=== PATIENT | male | born 1945 ===

== ENCOUNTER 2024-10-14 02:41 | Outpatient (CLI) | payer MEDICAID, SELFPAY ==
[2024-10-14 08:13] LABS: Abs Immature Grans 0.02 10^3/uL (0.0-0.06); Absolute Basophil Count 0.08 10^3/uL (0.0-0.2); Absolute Eosinophil Count 0.18 10^3/uL (0.0-0.7); Absolute Lymphocyte Count 1.93 10^3/uL (1.2-3.4); Absolute Monocyte Count 0.66 10^3/uL (0.1-0.8); Absolute Neutrophil Count 5.68 10^3/uL (1.2-6.7); Basophils % 0.9 %; Eosinophils % 2.1 %; HCT 36.8 % (40.0-50.0); HGB 12.3 g/dL (13.5-17.5); Immature Grans % 0.2 %; Lymphocytes % 22.6 %; MCH 30.4 pg (27.0-33.0); MCHC 33.4 % (32.0-36.0); MCV 91 fL (80-95); MPV 9.8 fL (8.0-11.0); Monocytes % 7.7 %; Neutrophils % 66.5 %; Platelet Count 248 10^3/uL (130-400); RBC 4.05 10^6/uL (4.36-5.78); RDW 12.2 % (11.8-14.1); RDW-SD 40.2 fL; WBC 8.55 10^3/uL (4.4-10.8)
[2024-10-14 08:30] LABS: ALT 13 U/L (16-63); AST 15 U/L (15-37); Alkaline Phosphatase 98 U/L (46-116); Anion Gap 7.1 mmol/L (3-11); BUN 19 mg/dL (7-18); Bilirubin, Total 0.5 mg/dL (0.2-1.0); CO2 29.9 mmol/L (21.0-32.0); CREATININE 1.5 mg/dL (0.70-1.30); Chloride 104 mmol/L (98-107); Estimated GFR 46.77 (mL/min/1.73m2); Glucose 109 mg/dL (74-106); Magnesium 1.9 mg/dL (1.8-2.4); Potassium 3.9 mmol/L (3.5-5.1); Sodium 141 mmol/L (136-145); Total Protein 8.8 g/dL (6.4-8.2)
[2024-10-14 08:37] LABS: Calcium 13.6 mg/dL (8.5-10.1)
== END 2024-10-14 02:42 | disposition home or self-care (01) ==
LOC: LBO 02:42
PROVIDERS: Visit Provider Internal Medicine Medical Oncology
DX: C34.31 Malignant neoplasm of lower lobe, right bronchus or lung (principal)
CPT/HCPCS: 36415; 80053; 80061; 83735; 85025

== ENCOUNTER 2024-10-16 16:39 | Outpatient (CLI) | payer MEDICAID, SELFPAY ==
[2024-10-16 16:47] LABS: ALT 12 U/L (16-63); AST 16 U/L (15-37); Alkaline Phosphatase 94 U/L (46-116); Anion Gap 4.3 mmol/L (3-11); BUN 26 mg/dL (7-18); Bilirubin, Total 0.3 mg/dL (0.2-1.0); CO2 29.7 mmol/L (21.0-32.0); CREATININE 1.2 mg/dL (0.70-1.30); Calcium 10.7 mg/dL (8.5-10.1); Chloride 106 mmol/L (98-107); Estimated GFR 61.13 (mL/min/1.73m2); Glucose 101 mg/dL (74-106); Potassium 4.2 mmol/L (3.5-5.1); Sodium 140 mmol/L (136-145); Total Protein 8.7 g/dL (6.4-8.2)
== END 2024-10-16 16:40 | disposition home or self-care (01) ==
LOC: LBO 16:39
PROVIDERS: Visit Provider Internal Medicine Medical Oncology
DX: C34.31 Malignant neoplasm of lower lobe, right bronchus or lung (principal)
CPT/HCPCS: 36415; 80053

== ENCOUNTER 2024-10-21 02:39 | Outpatient (CLI) | payer MEDICAID, SELFPAY ==
[2024-10-21 08:43] LABS: Abs Immature Grans 0.15 10^3/uL (0.0-0.06); Absolute Basophil Count 0.07 10^3/uL (0.0-0.2); Absolute Eosinophil Count 0.13 10^3/uL (0.0-0.7); Absolute Lymphocyte Count 1.17 10^3/uL (1.2-3.4); Eosinophils % 1.8 %; HGB 11.4 g/dL (13.5-17.5); Immature Grans % 2.1 %; Lymphocytes % 16.4 %; MCHC 33.5 % (32.0-36.0); MCV 92 fL (80-95); MPV 9.6 fL (8.0-11.0); Monocytes % 5.6 %; Neutrophils % 73.1 %; Platelet Count 241 10^3/uL (130-400); RBC 3.68 10^6/uL (4.36-5.78); RDW 11.9 % (11.8-14.1); RDW-SD 39.8 fL; WBC 7.12 10^3/uL (4.4-10.8)
[2024-10-21 09:08] LABS: ALT 12 U/L (16-63); AST 16 U/L (15-37); Alkaline Phosphatase 94 U/L (46-116); Anion Gap 6.2 mmol/L (3-11); BUN 20 mg/dL (7-18); Bilirubin, Total 0.4 mg/dL (0.2-1.0); CO2 26.8 mmol/L (21.0-32.0); CREATININE 1.2 mg/dL (0.70-1.30); Calcium 10.5 mg/dL (8.5-10.1); Chloride 101 mmol/L (98-107); Estimated GFR 61.13 (mL/min/1.73m2); Glucose 107 mg/dL (74-106); Potassium 4.2 mmol/L (3.5-5.1); Sodium 134 mmol/L (136-145); Total Protein 8.8 g/dL (6.4-8.2)
== END 2024-10-21 02:40 | disposition home or self-care (01) ==
LOC: LBO 02:39
PROVIDERS: Visit Provider Internal Medicine Medical Oncology
DX: C34.31 Malignant neoplasm of lower lobe, right bronchus or lung (principal)
CPT/HCPCS: 36415; 80053; 83735; 85025

== ENCOUNTER 2024-10-27 04:14 | Outpatient (CLI) | payer MEDICAID, SELFPAY ==
[2024-10-27 07:30] LABS: Abs Immature Grans 0.04 10^3/uL (0.0-0.06); Absolute Basophil Count 0.04 10^3/uL (0.0-0.2); Absolute Eosinophil Count 0.05 10^3/uL (0.0-0.7); Absolute Lymphocyte Count 0.88 10^3/uL (1.2-3.4); Absolute Monocyte Count 0.25 10^3/uL (0.1-0.8); Absolute Neutrophil Count 2.86 10^3/uL (1.2-6.7); Eosinophils % 1.2 %; HCT 33.7 % (40.0-50.0); HGB 11.4 g/dL (13.5-17.5); Lymphocytes % 21.4 %; MCH 31.1 pg (27.0-33.0); MCHC 33.8 % (32.0-36.0); MCV 92 fL (80-95); MPV 9.5 fL (8.0-11.0); Monocytes % 6.1 %; Neutrophils % 69.3 %; Platelet Count 214 10^3/uL (130-400); RBC 3.67 10^6/uL (4.36-5.78); RDW 11.6 % (11.8-14.1); RDW-SD 38.9 fL; WBC 4.12 10^3/uL (4.4-10.8)
[2024-10-27 07:55] LABS: ALT 13 U/L (16-63); AST 11 U/L (15-37); Albumin 2.9 g/dL (3.4-5.0); Alkaline Phosphatase 91 U/L (46-116); Anion Gap 7.5 mmol/L (3-11); BUN 27 mg/dL (7-18); Bilirubin, Total 0.6 mg/dL (0.2-1.0); CO2 28.5 mmol/L (21.0-32.0); CREATININE 1.1 mg/dL (0.70-1.30); Chloride 101 mmol/L (98-107); Estimated GFR 67.86 (mL/min/1.73m2); Glucose 116 mg/dL (74-106); Magnesium 1.8 mg/dL (1.8-2.4); Potassium 4.4 mmol/L (3.5-5.1); Sodium 137 mmol/L (136-145); Total Protein 8.7 g/dL (6.4-8.2)
== END 2024-10-27 04:15 | disposition home or self-care (01) ==
PROVIDERS: Visit Provider Internal Medicine Medical Oncology
DX: C34.31 Malignant neoplasm of lower lobe, right bronchus or lung (principal)
CPT/HCPCS: 36415; 80053; 83735; 85025

== ENCOUNTER 2024-11-03 02:38 | Outpatient (CLI) | payer MEDICAID, SELFPAY ==
[2024-11-03 08:32] LABS: Abs Immature Grans 0.02 10^3/uL (0.0-0.06); Absolute Basophil Count 0.03 10^3/uL (0.0-0.2); Absolute Eosinophil Count 0.02 10^3/uL (0.0-0.7); Absolute Lymphocyte Count 0.51 10^3/uL (1.2-3.4); Absolute Monocyte Count 0.48 10^3/uL (0.1-0.8); Absolute Neutrophil Count 1.79 10^3/uL (1.2-6.7); Basophils % 1.1 %; Eosinophils % 0.7 %; HCT 30.1 % (40.0-50.0); HGB 10.1 g/dL (13.5-17.5); Immature Grans % 0.7 %; Lymphocytes % 17.9 %; MCH 30.7 pg (27.0-33.0); MCHC 33.6 % (32.0-36.0); MCV 92 fL (80-95); MPV 8.9 fL (8.0-11.0); Monocytes % 16.8 %; Neutrophils % 62.8 %; Platelet Count 181 10^3/uL (130-400); RBC 3.29 10^6/uL (4.36-5.78); RDW 11.8 % (11.8-14.1); RDW-SD 38.7 fL; WBC 2.85 10^3/uL (4.4-10.8)
[2024-11-03 08:51] LABS: ALT 12 U/L (16-63); AST 13 U/L (15-37); Albumin 2.7 g/dL (3.4-5.0); Alkaline Phosphatase 80 U/L (46-116); Anion Gap 7.3 mmol/L (3-11); BUN 18 mg/dL (7-18); Bilirubin, Total 0.4 mg/dL (0.2-1.0); CO2 26.7 mmol/L (21.0-32.0); Calcium 8.5 mg/dL (8.5-10.1); Chloride 103 mmol/L (98-107); Estimated GFR 76.08 (mL/min/1.73m2); Glucose 108 mg/dL (74-106); Magnesium 1.7 mg/dL (1.8-2.4); Potassium 3.8 mmol/L (3.5-5.1); Sodium 137 mmol/L (136-145); Total Protein 7.9 g/dL (6.4-8.2)
== END 2024-11-03 02:39 | disposition home or self-care (01) ==
LOC: LBO 02:39
PROVIDERS: Visit Provider Internal Medicine Medical Oncology
DX: C34.31 Malignant neoplasm of lower lobe, right bronchus or lung (principal)
CPT/HCPCS: 36415; 80053; 83735; 85025

== ENCOUNTER 2024-11-10 00:46 | Outpatient (CLI) | payer MEDICAID, SELFPAY ==
[2024-11-10 08:22] LABS: Abs Immature Grans 0.07 10^3/uL (0.0-0.06); Absolute Basophil Count 0.03 10^3/uL (0.0-0.2); Absolute Eosinophil Count 0.02 10^3/uL (0.0-0.7); Absolute Lymphocyte Count 0.43 10^3/uL (1.2-3.4); Absolute Monocyte Count 0.41 10^3/uL (0.1-0.8); Absolute Neutrophil Count 3.63 10^3/uL (1.2-6.7); Basophils % 0.7 %; Eosinophils % 0.4 %; HGB 10.3 g/dL (13.5-17.5); Immature Grans % 1.5 %; Lymphocytes % 9.4 %; MCH 30.5 pg (27.0-33.0); MCHC 33.2 % (32.0-36.0); MCV 92 fL (80-95); MPV 8.9 fL (8.0-11.0); Monocytes % 8.9 %; Neutrophils % 79.1 %; Platelet Count 150 10^3/uL (130-400); RBC 3.38 10^6/uL (4.36-5.78); RDW-SD 38.9 fL; WBC 4.59 10^3/uL (4.4-10.8)
[2024-11-10 08:47] LABS: ALT 18 U/L (16-63); AST 13 U/L (15-37); Albumin 2.8 g/dL (3.4-5.0); Alkaline Phosphatase 86 U/L (46-116); Anion Gap 9.9 mmol/L (3-11); BUN 16 mg/dL (7-18); Bilirubin, Total 0.5 mg/dL (0.2-1.0); CO2 27.1 mmol/L (21.0-32.0); CREATININE 1.2 mg/dL (0.70-1.30); Calcium 8.9 mg/dL (8.5-10.1); Chloride 102 mmol/L (98-107); Estimated GFR 60.75 (mL/min/1.73m2); Glucose 111 mg/dL (74-106); Magnesium 1.9 mg/dL (1.8-2.4); Potassium 3.8 mmol/L (3.5-5.1); Sodium 139 mmol/L (136-145); Total Protein 8.1 g/dL (6.4-8.2)
== END 2024-11-10 00:47 | disposition home or self-care (01) ==
LOC: LBO 00:46
PROVIDERS: Visit Provider Internal Medicine Medical Oncology
DX: C34.31 Malignant neoplasm of lower lobe, right bronchus or lung (principal)
CPT/HCPCS: 36415; 80053; 83735; 85025

== ENCOUNTER 2024-11-17 15:39 | Outpatient (REF) | payer MEDICAID, SELFPAY ==
[2024-11-17 12:05] LABS: Bilirubin Negative (Negative); Blood Trace-intact (Negative); Clarity Sl Cloudy (Clear); Glucose Negative (Negative); Ketones Negative (Negative); Leukocyte Esterase Large (Negative); Nitrite Negative (Negative); Specific Gravity 1.015 (1.005-1.025); Urobilinogen 0.2 mg/dL (Up to 0.2)
[2024-11-17 13:18] LABS: Bacteria Many HPF (Negative); C & S Indicated? Yes; Casts Negative LPF (Negative); Crystals Negative HPF (Negative); Epithelial Cells Few HPF (Negative); Mucus Trace (Negative)
== END 2024-11-17 15:40 | disposition home or self-care (01) ==
LOC: LBN 15:39
PROVIDERS: Visit Provider Internal Medicine Medical Oncology
DX: C34.31 Malignant neoplasm of lower lobe, right bronchus or lung (principal); R35.0 Frequency of micturition
CPT/HCPCS: 87077; 81003; 81015; 87086; 87186

== ENCOUNTER 2024-11-25 13:03 | Outpatient (CLI) | payer MEDICAID, SELFPAY ==
[2024-11-25 12:23] LABS: Abs Immature Grans 0.04 10^3/uL (0.0-0.06); HCT 25.9 % (40.0-50.0); HGB 8.8 g/dL (13.5-17.5); Immature Grans % 1.3 %; MCH 31.2 pg (27.0-33.0); MCHC 34.0 % (32.0-36.0); MCV 92 fL (80-95); MPV 8.9 fL (8.0-11.0); Platelet Count 117 10^3/uL (130-400); RBC 2.82 10^6/uL (4.36-5.78); RDW 13.5 % (11.8-14.1); RDW-SD 41.9 fL; WBC 3.15 10^3/uL (4.4-10.8)
[2024-11-25 12:41] LABS: ALT 15 U/L (16-63); AST 11 U/L (15-37); Albumin 2.5 g/dL (3.4-5.0); Alkaline Phosphatase 78 U/L (46-116); Anion Gap 9.7 mmol/L (3-11); BUN 15 mg/dL (7-18); Bilirubin, Total 0.4 mg/dL (0.2-1.0); CO2 26.3 mmol/L (21.0-32.0); Calcium 8.5 mg/dL (8.5-10.1); Chloride 102 mmol/L (98-107); Estimated GFR 85.80 (mL/min/1.73m2); Glucose 136 mg/dL (74-106); Magnesium 1.7 mg/dL (1.8-2.4); Potassium 4.0 mmol/L (3.5-5.1); Sodium 138 mmol/L (136-145); Total Protein 7.5 g/dL (6.4-8.2)
== END 2024-11-25 13:04 | disposition home or self-care (01) ==
LOC: LBO 13:03
PROVIDERS: Visit Provider Internal Medicine Medical Oncology
DX: C34.31 Malignant neoplasm of lower lobe, right bronchus or lung (principal)
CPT/HCPCS: 36415; 80053; 83735; 85025

== ENCOUNTER 2024-12-09 10:20 | Outpatient (CLI) | payer MEDICAID, SELFPAY ==
[2024-12-09 10:22] LABS: Abs Immature Grans 0.15 10^3/uL (0.0-0.06); HCT 27.1 % (40.0-50.0); HGB 9.0 g/dL (13.5-17.5); Immature Grans % 3.0 %; MCH 31.0 pg (27.0-33.0); MCHC 33.2 % (32.0-36.0); MCV 93 fL (80-95); MPV 9.0 fL (8.0-11.0); Platelet Count 196 10^3/uL (130-400); RBC 2.90 10^6/uL (4.36-5.78); RDW 15.9 % (11.8-14.1); RDW-SD 51.8 fL; WBC 5.07 10^3/uL (4.4-10.8)
[2024-12-09 10:50] LABS: ALT 13 U/L (16-63); AST 15 U/L (15-37); Albumin 2.6 g/dL (3.4-5.0); Alkaline Phosphatase 106 U/L (46-116); Anion Gap 7.8 mmol/L (3-11); BUN 18 mg/dL (7-18); Bilirubin, Total 0.4 mg/dL (0.2-1.0); CO2 26.2 mmol/L (21.0-32.0); Calcium 8.9 mg/dL (8.5-10.1); Chloride 104 mmol/L (98-107); Estimated GFR 75.61 (mL/min/1.73m2); Glucose 123 mg/dL (74-106); Magnesium 1.9 mg/dL (1.8-2.4); Potassium 3.7 mmol/L (3.5-5.1); Sodium 138 mmol/L (136-145); TSH 1.97 uIU/mL (0.36-3.74); Total Protein 8.4 g/dL (6.4-8.2)
== END 2024-12-09 10:21 | disposition home or self-care (01) ==
LOC: LBO 10:20
PROVIDERS: Visit Provider Nurse Practitioner Family
DX: Z79.899 Other long term (current) drug therapy (principal); C34.31 Malignant neoplasm of lower lobe, right bronchus or lung
CPT/HCPCS: 36415; 80053; 83735; 84439; 84443; 85025

== ENCOUNTER 2025-01-05 04:30 | Outpatient (CLI) | payer MEDICAID, SELFPAY ==
[2025-01-05 09:59] LABS: Abs Immature Grans 0.07 10^3/uL (0.0-0.06); HCT 29.7 % (40.0-50.0); HGB 9.7 g/dL (13.5-17.5); Immature Grans % 1.1 %; MCH 31.5 pg (27.0-33.0); MCHC 32.7 % (32.0-36.0); MCV 96 fL (80-95); MPV 9.2 fL (8.0-11.0); Platelet Count 197 10^3/uL (130-400); RBC 3.08 10^6/uL (4.36-5.78); RDW 14.6 % (11.8-14.1); RDW-SD 51.4 fL; WBC 6.48 10^3/uL (4.4-10.8)
[2025-01-05 10:26] LABS: ALT 18 U/L (16-63); AST 16 U/L (15-37); Albumin 2.8 g/dL (3.4-5.0); Alkaline Phosphatase 108 U/L (46-116); Anion Gap 9.1 mmol/L (3-11); BUN 18 mg/dL (7-18); Bilirubin, Total 0.5 mg/dL (0.2-1.0); CO2 25.9 mmol/L (21.0-32.0); Calcium 8.7 mg/dL (8.5-10.1); Chloride 105 mmol/L (98-107); Estimated GFR 75.61 (mL/min/1.73m2); Glucose 108 mg/dL (74-106); Magnesium 1.9 mg/dL (1.8-2.4); Potassium 3.9 mmol/L (3.5-5.1); Sodium 140 mmol/L (136-145); TSH 2.06 uIU/mL (0.36-3.74); Total Protein 8.7 g/dL (6.4-8.2)
== END 2025-01-05 04:31 | disposition home or self-care (01) ==
LOC: LBO 04:30
PROVIDERS: Visit Provider Nurse Practitioner Family
DX: Z79.899 Other long term (current) drug therapy (principal); C34.31 Malignant neoplasm of lower lobe, right bronchus or lung
CPT/HCPCS: 36415; 80053; 83735; 84439; 84443; 85025

== ENCOUNTER 2025-01-05 15:42 | Outpatient (REF) | payer MEDICAID, SELFPAY ==
[2025-01-05 12:10] LABS: Glucose Negative (Negative)
[2025-01-05 13:49] LABS: C & S Indicated? Yes; RBC 0-2 HPF (0-2); WBC >50 HPF (0-5)
== END 2025-01-05 15:43 | disposition home or self-care (01) ==
LOC: LBN 15:42
PROVIDERS: Visit Provider Internal Medicine Medical Oncology
DX: C34.31 Malignant neoplasm of lower lobe, right bronchus or lung (principal); R35.0 Frequency of micturition
CPT/HCPCS: 87077; 81003; 81015; 87086; 87186

== ENCOUNTER 2025-02-02 11:03 | Outpatient (CLI) | payer MEDICAID, SELFPAY ==
[2025-02-02 10:14] LABS: Abs Immature Grans 0.05 10^3/uL (0.0-0.06); HCT 29.2 % (40.0-50.0); HGB 9.4 g/dL (13.5-17.5); Immature Grans % 0.7 %; MCH 29.7 pg (27.0-33.0); MCHC 32.2 % (32.0-36.0); MCV 92 fL (80-95); MPV 9.1 fL (8.0-11.0); Platelet Count 256 10^3/uL (130-400); RBC 3.16 10^6/uL (4.36-5.78); RDW 13.0 % (11.8-14.1); RDW-SD 43.6 fL; WBC 6.99 10^3/uL (4.4-10.8)
[2025-02-02 10:56] LABS: ALT 43 U/L (16-63); AST 42 U/L (15-37); Albumin 2.3 g/dL (3.4-5.0); Alkaline Phosphatase 172 U/L (46-116); Anion Gap 10.0 mmol/L (3-11); BUN 15 mg/dL (7-18); Bilirubin, Total 0.5 mg/dL (0.2-1.0); CO2 28.0 mmol/L (21.0-32.0); Calcium 9.0 mg/dL (8.5-10.1); Chloride 101 mmol/L (98-107); Estimated GFR 60.75 (mL/min/1.73m2); Glucose 115 mg/dL (74-106); Magnesium 1.6 mg/dL (1.8-2.4); Potassium 3.2 mmol/L (3.5-5.1); Sodium 139 mmol/L (136-145); TSH 1.97 uIU/mL (0.36-3.74); Total Protein 8.1 g/dL (6.4-8.2)
== END 2025-02-02 11:04 | disposition home or self-care (01) ==
LOC: LBO 11:03
PROVIDERS: Visit Provider Nurse Practitioner Family
DX: C34.31 Malignant neoplasm of lower lobe, right bronchus or lung (principal); Z79.899 Other long term (current) drug therapy
CPT/HCPCS: 36415; 80053; 83735; 84439; 84443; 85025